=== PATIENT | female | born 1975 | race African-American/Black ===

== ENCOUNTER 2020-06-21 15:41 | Emergency (ER) | payer MEDICAID ==
[~2020-06-21] VITALS: Ht 167.6 cm; Wt 59.0 kg
--- NOTE | 2020-06-21 16:04 | NUR ---
laceration to left index finger today while fixing the chair bleeding small amount
[2020-06-21] MEDS ORDERED: Morphine Sulfate 2mg/ml Inj(IV/IM USE ONLY) IVP ONE (16:15)
[2020-06-21] MEDS ORDERED: Morphine Sulfate 10mg/ml Inj IVP ONE (16:15)
[2020-06-21] MEDS ORDERED: Morphine Sulfate 2mg/ml Inj(IV/IM USE ONLY) IM ONE (16:30)
[2020-06-21] MEDS ORDERED: ceFAZolin sod 1 GM in NS 55 ML IVPB ONE (16:45)
[2020-06-21] MEDS ORDERED: Tetanus/Diptheria/Pertussis IM ONE (16:45)
--- NOTE | 2020-06-21 17:00 | NUR ---
labs done x-rays done waiting forplasic surgery conselt done waiting for dr sotomayor
--- NOTE | 2020-06-21 17:25 | Emergency Room Report ---
History of Present Illness General Chief Complaint: Laceration Present Illness HPI 44-year-old female presents to the emergency department complaining of 9 out of 10 severity localized left index finger pain, deformity and laceration with some bleeding x1 hour. Patient reports that she had a crush type injury when she was putting together outdoor furniture and a heavy portion collapsed in on her finger. She reports she is right-hand dominant. She reports hypersensitivity she denies paresthesias. She is not sure when her last tetanus vaccine was. She denies taking blood thinning medications. No other aggravating or relieving factors at this time. Patient denies significant past medical history. She denies . (Eimly Argueta) Allergies: Coded Allergies: No Known Allergies (Unverified , 06/21/20) COVID-19 Screening Contact w/high risk pt: No Experienced COVID-19 symptoms?: No COVID-19 Testing performed [employer]: No (Emily Argueta) Patient History Past Medical History: see triage record Past Surgical History: none Pertinent Family History: none Now: No Reviewed Nursing Documentation: PMH: Agreed; PSxH: Agreed (Emily Argueta) Nursing Documentation-PMH Past Medical History: No Stated History (Emily Argueta) Review of Systems All Other Systems: negative except mentioned in HPI (Emily Argueta) Physical Exam Vital Signs Date Time Temp Pulse Resp B/P (MAP) Pulse Ox O2 Delivery O2 Flow Rate FiO2 06/21/20 15:58 97.9 78 18 110/60 (77) 98 Room Air Sp02 EP Interpretation: reviewed, normal General Appearance: alert, GCS 15, non-toxic, mild distress Head: normocephalic, atraumatic Eyes: bilateral eye normal inspection, bilateral eye PERRL ENT: hearing grossly normal, normal voice Neck: full range of motion Respiratory: lungs clear, normal breath sounds, speaking full sentences Cardiovascular #1: regular rate, rhythm, normal capillary refill Cardiovascular #2: 2+ radial (L) Musculoskeletal: gait/station normal, tender - Distal left index finger. There is obvious visible deformity just distal to the DIP joint, visible bone and laceration approx 1cm stellate. Limited ROM with flexion or extension. normal sensation, good cap. refill. Neurologic: alert, motor strength/tone normal, oriented x3, sensory intact, responsive, speech normal Psychiatric: judgement/insight normal Skin: laceration - Distal left index finger: There is obvious visible deformity just distal to the DIP joint, visible bone and stellate laceration approx 1 cm. Normal sensation, good cap. refill. Lymphatic: no adenopathy (Emily Argueta) Medical Decision Making PA Attestation Dr. Cummins Is my supervising Physician whom patient management has been discussed with. (Emily Argueta) Diagnostic Impression: Primary Impression: Laceration Additional Impression: Open finger fracture Qualified Codes: S62.631B - Displaced fracture of distal phalanx of left index finger, initial encounter for open fracture ER Course 44-year-old female presents to the emergency department complaining of 9 out of 10 severity localized left index finger pain, deformity and laceration with some bleeding x1 hour. Patient reports that she had a crush type injury when she was putting together outdoor furniture and a heavy portion collapsed in on her fin ashu. She reports she is right-hand dominant. She reports hypersensitivity she denies paresthesias. She is not sure when her last tetanus vaccine was. She denies taking blood thinning medications. No other aggravating or relieving factors at this time. Patient denies significant past medical history. She denies . Ddx considered but are not limited to laceration, tendon injury, cellulitis, amputation, fracture, crush injury, compartment syndrome, circulatory or neurological compromise just to name a few. Vital signs: are WNL, pt. is afebrile H&PE are most consistent with: complicated open fracture of the distal second phalanx with stellate laceration approx 1 cm in length. Portion of the bone is visible, pt. unable to Range the 2nd phalanx distal to the DIP joint. slight fingernail involvement approx 0.25cm. NVI, good cap refill. ORDERS: none required at this time, the diagnosis is clinical ED INTERVENTIONS: -Tetanus vaccine was administered as pt. vaccination status was unknown. - The wound was copiously irrigated with normal saline, and explored for foreign body for which no FB was found. - 6mg Morphine IM - 1g Ancef IV -Light dressing applied to finger to immobilize the area of deformity to pt. comfort. - Pre-op labs ordered. - Hand/plastics consult Dr. Penaloza, contacted regarding complicated open fracture with laceration. Dr. Penaloza will come evaluate the pt. here in the ED. --Left index finger splint applied by Dr. Penaloza. Pt. remains neurovascularly intact. -- Left arm Sling applied by ED RN. Pt. remains neurovascularly intact. DISCHARGE: At this time pt. is stable for d/c to home. Will provide printed patient care instructions, and any necessary prescriptions. Care plan and follow up instructions have been discussed with the patient prior to discharge. -Pt. given Rx for Abx, and pain meds. Pt. reports she easily gets yeast infection with Abx, so additional rx for Diflucan is given for in the event she develops a yeast infection after finishing her course of oral abx. Labs Test 06/21/20 17:14 06/21/20 17:21 White Blood Count 8.4 K/UL (4.8-10.8) Red Blood Count 4.43 M/UL (4.20-5.40) Hemoglobin 14.0 G/DL (12.0-16.0) Hematocrit 43.9 % (37.0-47.0) Mean Corpuscular Volume 99 FL (80-99) Mean Corpuscular Hemoglobin 31.7 PG (27.0-31.0) Mean Corpuscular Hemoglobin Concent 32.0 G/DL (32.0-36.0) Red Cell Distribution Width 15.3 % (11.6-14.8) Platelet Count 309 K/UL (150-450) Mean Platelet Volume 6.6 FL (6.5-10.1) Neutrophils (%) (Auto) 57.2 % (45.0-75.0) Lymphocytes (%) (Auto) 34.0 % (20.0-45.0) Monocytes (%) (Auto) 7.0 % (1.0-10.0) Eosinophils (%) (Auto) 1.0 % (0.0-3.0) Basophils (%) (Auto) 0.9 % (0.0-2.0) Prothrombin Time 11.3 SEC (9.30-11.50) Prothromb Time International Ratio 1.0 (0.9-1.1) Activated Partial Thromboplast Time 28 SEC (23-33) Sodium Level 141 MMOL/L (136-145) Potassium Level 4.0 MMOL/L (3.5-5.1) Chloride Level 106 MMOL/L (98-107) Carbon Dioxide Level 26 MMOL/L (21-32) Anion Gap 9 mmol/L (5-15) Blood Urea Nitrogen 13 mg/dL (7-18) Creatinine 1.0 MG/DL (0.55-1.30) Estimat Glomerular Filtration Rate > 60 mL/min (>60) Glucose Level 95 MG/DL (74-106) Calcium Level 9.7 MG/DL (8.5-10.1) Urine HCG, Qualitative Negative (NEGATIVE) (Emily Argueta) Other X-Ray Diagnostic Results Other X-Ray Diagnostic Results : X-Ray ordered: Left fingers # of Views/Limited Vs Complete: 3 View Indication: Pain EP Interpretation: Yes PA Xray: Interpretation reviewed, by supervising MD, and agrees with findings. Interpretation: other - St swelling, distal laceration, and 2nd distal phalanx displaced fracture. Impression: Other - abnormal Electronically Signed by: Emily Argueta PA-C (Emily Argueta) Other X-Ray Diagnostic Results : Electronically Signed by: Mary Blandon documentation of Xray reviewed by me and is accurate, Wilner Cummins MD (Wilner Cummins MD) Last Vital Signs Date Time Temp Pulse Resp B/P (MAP) Pulse Ox O2 Delivery O2 Flow Rate FiO2 06/21/20 15:58 97.9 78 18 110/60 (77) 98 Room Air Status: improved (Emily Argueta) Status: improved (Wilner Cummins MD) Disposition: HOME, SELF-CARE Condition: Stable Scripts Fluconazole (FLUCONAZOLE) 100 Mg Tablet 100 MG ORAL DAILY, #3 TAB 0 Refills Prov: Emily Argueta 06/21/20 Ibuprofen* (MOTRIN*) 600 Mg Tablet 600 MG ORAL THREE TIMES A DAY, #20 TAB Prov: Emily Argueta 06/21/20 Hydrocodone/Acetaminophen 5-325* (HYDROCODONE/ACETAMINOPHEN 5-325*) 1 Each Tablet 1 TAB ORAL Q6H PRN for For Pain, #12 TAB 0 Refills Prov: Emily Argueta 06/21/20 Cephalexin* (KEFLEX*) 500 Mg Capsule 500 MG ORAL EVERY 12 HOURS for 7 Days, #14 CAP 0 Refills Prov: Emily Argueta 06/21/20 Referrals: NOT CHOSEN IPA/,REFERRING (PCP) Garett Penaloza MD Patient Instructions: Crush Injury, Fingers or Toes, [id number], Finger Fracture, Laceration Care, Adult Additional Instructions: Take medications as directed. ! Do not drink alcohol, drive, or operate heavy machinery while taking Lynn as this may cause drowsiness. Follow up with Dr. Garett Penaloza ( Hand /plastic surgeon specialist who treated you) Next week at his office. His contact information is provided below. Return sooner to ED if new symptoms occur, or current symptoms become worse. - Please note that this Emergency Department Report was dictated using [employer] advisor technology software, occasionally this can lead to erroneous entry secondary to interpretation by the dictation equipment. Emily Argueta Jun 21, 2020 17:25 Wilner Cummins MD Jun 22, 2020 01:58
[2020-06-21] MEDS ORDERED: Lidocaine 1% 10mg/ml/Epi 0.005mg/ml 10ml INJ ONE (17:27)
[2020-06-21] MEDS ORDERED: Bacitracin Oint UD TOPIC ONE ×2 (17:29→17:30)
[2020-06-21] MEDS ORDERED: Lidocaine 1% 10mg/ml/Epi 0.005mg/ml 30ml vial INJ ONE (17:30)
[2020-06-21 17:43] LABS: BASOPHILS % (AUTO) 0.9 % (0.0-2.0); HEMATOCRIT 43.9 % (37.0-47.0); MEAN CORPUSCULAR VOLUME 99 FL (80-99); NEUTROPHILS % (AUTO) 57.2 % (45.0-75.0); PLATELET COUNT 309 K/UL (150-450); RED BLOOD COUNT 4.43 M/UL (4.20-5.40); RED CELL DISTRIBUTION WIDTH 15.3 % (11.6-14.8); WHITE BLOOD COUNT 8.4 K/UL (4.8-10.8)
--- NOTE | 2020-06-21 17:45 | NUR ---
dr sotomayor at bedside evaluating the patient
[2020-06-21 17:51] LABS: ANION GAP 9 mmol/L (5-15); BLOOD UREA NITROGEN 13 mg/dL (7-18); CALCIUM 9.7 MG/DL (8.5-10.1); CARBON DIOXIDE 26 MMOL/L (21-32); CHLORIDE 106 MMOL/L (98-107); SODIUM 141 MMOL/L (136-145)
--- NOTE | 2020-06-21 17:51 | Diagnostic Imaging Report ---
EXAM: XR Left Fingers, 2 or More Views CLINICAL HISTORY: PAIN TECHNIQUE: Frontal, lateral and oblique views of the fingers of the left hand. COMPARISON: No relevant prior studies available. FINDINGS: Bones/joints: 2nd distal phalanx displaced fracture. No acute dislocation. Soft tissues: Distal 2nd digit laceration. Soft tissue swelling. No radiopaque foreign body. IMPRESSION: 2nd distal phalanx displaced fracture.
[2020-06-21] MEDS ORDERED: HYDROCODON-ACE1 EA15 ORAL (18:18)
[2020-06-21] MEDS ORDERED: IBUPROFEN600 M1 ORAL (18:18)
[2020-06-21] MEDS ORDERED: CEPHALEXIN500 MG ORAL (18:18)
[2020-06-21] MEDS ORDERED: FLUCONAZOLE100 MG ORAL (18:29)
--- NOTE | 2020-06-21 18:34 | NUR ---
Finger splint by after suturing. Arm sling applied.
--- NOTE | 2020-06-21 18:35 | NUR ---
SL left AC removed.
[2020-06-21 18:46] VITALS: BP 132/77
== END 2020-06-21 18:48 | disposition home or self-care (01) ==
LOC: EMR 16:17
DX: S62.631B Displaced fracture of distal phalanx of left index finger, initial encounter for open fracture (principal); W20.8XXA Other cause of strike by thrown, projected or falling object, initial encounter; Y93.89 Activity, other specified; Y92.9 Unspecified place or not applicable
CPT/HCPCS: 29130; 36415; 73140; 80048; 81025; 85025; 85610; 85730; 86850; 86900; 86901; 90471; 90715; 96365; 96372; 96375; J0690; J2270; Z7502; 99284